=== PATIENT | female | born 1985 | race Caucasian/White ===

== ENCOUNTER 2020-08-08 16:46 | Outpatient (REF) | payer BC, SELFPAY | END 2020-08-08 16:47 | disposition home or self-care (01) | LOC: HO.SCI 16:46 | DX: Z13.89 Encounter for screening for other disorder (principal) ==

== ENCOUNTER 2020-08-10 18:36 | Outpatient (REF) | payer BC, SELFPAY ==
--- NOTE | ~2020-08-10 | MR_ITS ---
EXAMINATION: MR BRAIN WITHOUT AND WITH CONTRAST CLINICAL INFORMATION: Cluster headache. COMPARISON: None available. TECHNIQUE: MRI of the brain was obtained using routine sequences without and following the administration of 8.5 mL of Gadavist intravenous contrast. FINDINGS: No focal restricted diffusion is demonstrated to suggest acute or subacute cerebral ischemia. No evidence of acute or chronic hemorrhagic products on heme-sensitive imaging. Normal parenchymal signal characteristics. The ventricles are normal in morphology and size. No abnormal mass effect. No midline shift. Normal appearance of the pituitary gland. No abnormalities of the posterior fossa with normal appearance of the brainstem and cerebellum. Normal positioning of the cerebellar tonsils. Normal arterial and venous vascular flow voids are present. No abnormal contrast enhancement. Normal, homogeneous marrow signal. Moderate mucosal thickening of the paranasal sinuses, most notably involving the left maxillary sinus. Moderate leftward nasal septal deviation. No signal abnormalities within the mastoids. MR/MR head/brain wo/w con IMPRESSION: 1. No acute intracranial abnormalities. No abnormal intracranial enhancement. 2. Moderate sinonasal mucosal disease, most notably involving the left maxillary sinus. Leftward nasal septal deviation. 3. No additional MRI abnormalities to explain the patient's symptoms.
== END 2020-08-10 18:37 | disposition home or self-care (01) ==
LOC: HO.MRI 18:36
PROVIDERS: PCP Registered Nurse; Visit Provider Psychiatry & Neurology Neurology
DX: G44.009 Cluster headache syndrome, unspecified, not intractable (principal)
CPT/HCPCS: 70553; A9585